=== PATIENT | female | born 1940 | race Caucasian/White ===

== ENCOUNTER 2018-03-10 17:06 | Inpatient (IN) ==
[2018-03-10] MEDS ORDERED: Naloxone 0.4 MG/ML INJ IVP PRN (20:39)
[2018-03-10] MEDS ORDERED: Acetaminophen 325 MG TABLET PO PRN (20:39)
[2018-03-10] MEDS ORDERED: 0.9 % Sodium Chloride 1,000 ML IVC SCH (20:45)
--- NOTE | 2018-03-10 21:02 | Internal Med History&Physical ---
Date of Encounter: 03/10/18 Time of Encounter: 20:00 Internal Medicine - H&P: HPI Chief complaint: syncope Admitted From: Hospital to Hospital Transfer Plans for Post Hospital Care: Home History of present illness: Ms. Randhawa is a 77 year old female who presents today in transfer from [facility] ER for concerns of syncope. She lives alone and suffers from dementia. However, she has a caregiver who stays with her most of the day every day. Today, her caregiver was helping her bathe and was getting her out of the shower when she became lightheaded and dizzy and sustained a syncopal event. Her caregiver/granddaughter was able to catch her and prevent a fall. She placed her on the ground and called the squad. She was brought to the ER where she was seen and evaluated. She was noted to be borderline hypotensive and bradycardic with heart rate in the 50s. Workup was essentially negative other than her bradycardia. She later went to go to the bathroom at the ER and [facility] and sustained a syncopal event. At that time, her blood pressure was in the 90s systolic. At that point, decision was made to transfer to [place] for further workup and care. Upon my assessment of the patient, patient's daughter and granddaughter are present and provided above history. Patient is pleasantly confused and does not offer much history. This is the patient's third episode of syncope/near syncope this week. She has had prior episodes in the past. She has also had a history of bradycardia in the past but has not had any intervention. To the family's knowledge, she has never had any heart problems or heart rhythm problems other than the bradycardia. She is on Lasix and has chronic kidney disease stage III. She does appear somewhat dehydrated, and I suspect that volume depletion may have contributed to her syncopal event. However, the bradycardia bothers me and may play a big role in her syncope. I discussed with the family their wishes and the patient's CODE STATUS. The power of estate planning attorney was not present, but the family contacted the power of estate planning attorney by phone. The two family members present and the power of estate planning attorney on the phone could not come to a decision on CODE STATUS at this time and the patient had not expressed prior wishes previously. Therefore, she will remain full code for now until family and POA can come to decision on the patient's behalf. Past Med Surg Social Fam HX - Past Medical History Attestation: Yes The following information was validated with the patient. Source: obtained from family, other (limited [facility] records) Medical history: dementia, GERD, renal disease (CKD 3) Psychiatric history: no psych history - Past Surgical History Surgical History: orthopedic, other (shoulder) - Social History Smoking Status: Never smoker Alcohol use: none Drug use: none Current living situation: Home Activity Level: Independent ambulation Recent Out of Country Travel Within the Last 8 Weeks: No Additional social history: caregiver daily at home - Family History Mother Living Status: Hx Family Cardiac Disorders: Yes (CHF) Father Living Status: Hx Family Cancer: Yes (liver) ROS unobtainable: due to mental status Review of systems: as per [place]; otherwise unobtainable due to dementia - Constitutional Vitals: Temp Pulse Resp BP Pulse Ox 98.3 F 69 18 108/58 98 03/10/18 20:04 03/10/18 20:04 03/10/18 20:04 03/10/18 20:04 03/10/18 20:04 General appearance: Present: A&O X 1, A&O X 3, pleasant, no acute distress Exam: appears dry - Head Head exam: Present: atraumatic, normal inspection - Eye Eye exam: Present: EOMI, PERRL. Absent: scleral icterus Pupils: Present: normal accommodation - ENT ENT exam: Present: mucous membranes dry, normal exam, normal oropharynx - Neck Neck exam general surgery: Present: full ROM, supple. Absent: tenderness, nuchal rigidity, thyromegaly - Respiratory Respiratory exam: Present: CTAB. Absent: chest wall tenderness, rales, rhonchi , wheezes - Cardiovascular Cardiovascular exam: Present: bradycardia, RRR, +S1, +S2, systolic murmur ( grade 1). Absent: diastolic murmur - GI/Abdominal GI/Abdominal exam: Present: normal bowel sounds, soft. Absent: hepatomegaly, splenomegaly, tenderness - Extremities Exam Extremities exam: Present: normal capillary refill, warm, radial pulses palpable and symmetrical. Absent: calf tenderness, joint swelling, pedal edema , tenderness - Back Exam Back exam: Absent: CVA tenderness (L), CVA tenderness (R) - Neurological Exam Neurological exam: Present: alert, CN II-XII intact, no focal deficits, strengths equal and symetr throughout. Absent: oriented X3 (pleasantly confused ) - Psychiatric Psychiatric exam: Present: normal affect, normal mood - Skin Skin exam: Present: dry, intact, warm Internal Med - H&P Results - Labs Labs: I reviewed her labs from [facility] and include the following: WBC 9.6 Hemoglobin 12.6 Hematocrit 39.2 Platelets 271 Sodium 139 Potassium 3.5 Chloride 102 Carbon dioxide 29 BUN 16 Glucose 143 Creatinine 1.45 Troponin less than 0.1 CT of the head reportedly negative but I do not see any documentation of that EKG -- personally reviewed: Sinus bradycardia with first-degree AV block and some subtle ST flattening and depression in leads V4 to V6 and lead 1 and aVL - Assessment and plan (1) Syncope Current Visit: Yes Status: Acute Assessment and plan: 1. Will trend troponins, EKG's, and monitor vitals closely. 2. Will monitor glucose for hypoglycemia. 3. Continue IVF and hold lasix. 4. Will order ECHO and Carotid Dopplers. 5. Obtain home med list and verify meds. List from [facility] reviewed and not officially updated. Qualifiers: Syncope type: unspecified Qualified Code(s): R55 - Syncope and collapse (2) Symptomatic bradycardia Current Visit: Yes Status: Acute Assessment and plan: 1. Hold any home medications which could affect rhythm and AV kristin suppression. 2. Monitor on telemetry. 3. Consult cardiology given history of bradycardia and recurrent syncope. (3) Dementia Current Visit: Yes Status: Chronic Assessment and plan: 1. Resume home meds as appropriate once med list obtained and verified. 2. Chronic care givers at home. Qualifiers: Dementia type: unspecified type Dementia behavioral disturbance: without behavioral disturbance Qualified Code(s): F03.90 - Unspecified dementia without behavioral disturbance (4) DVT prophylaxis Current Visit: Yes Status: Acute Assessment and plan: 1. Heparin SQ.
[2018-03-11 03:03] LABS: Bilirubin,Urine Negative (Negative); Blood,Urine Moderate (Negative); Clarity,Urine Cloudy (Clear); Color,Urine Yellow (Yellow); Glucose,Urine (UA) Normal (Normal); Ketones,Urine Negative (Negative); Leukocyte Esterase,Urine Small (Negative); Nitrite,Urine Negative (Negative); PH,Urine 6.5 pH Units (5.0-8.0); Protein,Urine Negative (Neg-Trace); Specific Gravity,Urine < 1.005 (1.010-1.025); Urobilinogen,Urine Normal (Normal)
[2018-03-11 03:06] LABS: Bacteria,Urine Many per hpf (None-Few); Hyaline Casts,Urine None Seen per lpf (None-Few); Squamous Epithelial Cell,Urine Many per lpf (None-Few)
[2018-03-11 03:45] LABS: Basophils % 0.5 %; Eosinophils # 0.3 K/mcL (0.0-0.6); Eosinophils % 3.8 %; Hemoglobin 10.8 g/dL (11.5-15.4); Immature Granulocytes % 0.1 % (0-4); Lymphocytes # 3.4 K/mcL (0.6-4.6); Lymphocytes % 44.3 %; Mean Corpuscular HGB Conc 32.7 g/dL (31.6-35.5); Mean Corpuscular Hemoglobin 31.6 pg (28.0-33.3); Mean Corpuscular Volume 96.5 fL (83.0-100.0); Mean Platelet Volume 9.8 fL (9.4-12.4); Monocytes # 0.9 K/mcL (0.0-1.3); Monocytes % 11.1 %; Neutrophils # 3.1 K/mcL (1.6-8.9); Platelet Count 202 K/mcL (140-400); Red Blood Count 3.42 M/mcL (3.82-4.97); Segmented Neutrophils % 40.2 %
[2018-03-11 03:53] LABS: INR 1.1; Prothrombin Time 12.6 Seconds (9.4-12.1)
[2018-03-11 03:55] LABS: Activated Partial Thrombo Time 26.4 Seconds (26.0-36.0)
[2018-03-11] MEDS ORDERED: 0.9 % Sodium Chloride 1,000 ML IVC SCH (04:00)
[2018-03-11 04:05] LABS: Albumin/Globulin Ratio 1.2 (1.1-2.2); Bilirubin,Total 0.3 mg/dL (0.3-1.0); Calcium 8.7 mg/dL (8.6-10.3); Chol/HDL Ratio 2.8 (0-4.9); Globulin 2.6 g/dL (2.4-3.5); Magnesium 2.1 mg/dL (1.6-2.6); Potassium 3.5 mEq/L (3.5-5.1); Total Protein 5.6 g/dL (6.4-8.9)
[2018-03-11] MEDS: *HR* Heparin 5,000 UNIT/ML VIAL SQ SCH ×2 (06:18→18:03)
--- NOTE | 2018-03-11 10:31 | Internal Med Progress Note ---
Hospitalist Progress Note - Encounter Date of Encounter: 03/11/18 Time of Encounter: 10:27 - Subjective Interval History: 77-year-old female past medical history of dementia brought into the hospital following a syncopal episode, possible secondary to bradycardia vs vol depletion. Patient evaluated at bedside, reports doing well but feels sleepy because she could not sleep last night. denies light headednes, dizziness, nausea or vomiting. No chest pain or SOB reported. - Exam Vitals: Temp Pulse Resp BP Pulse Ox 97.9 F 55 17 141/76 96 03/11/18 07:28 03/11/18 07:28 03/11/18 07:28 03/11/18 07:28 03/11/18 07:28 Exam: General: Alert and oriented x2. No acute distress. Cardiovascular: Bradycardic, Normal S1 & S2, no rubs, murmurs or gallops. Lungs: Clear to auscultation bilaterally, no wheezes or crackles. Abdomen: Soft, non-tender, no rigidity. Extremities: no edema or tenderness, no joint swelling or clubbing. strength 5/ 5 in the upper and lower extremities. Neurological: CN II-XII. Rest of the physical exam is non contributory - Assessment and Plan (1) Syncope Current Visit: Yes Status: Acute Assessment and Plan: Possible secondary to Bradycardia vs vol depletion. No focal neurological findings. Plan Continue IV hydration On d5NS@75mls/hr Cardiology has been consulted. carotid dupplex and echo cardiogram ordered, report to follow. (2) Dementia Current Visit: Yes Status: Chronic Assessment and Plan: donepezil on hold due to Bradycardia (3) Bradycardia Current Visit: Yes Status: Acute Assessment and Plan: Possible contributing to her syncopal episode. Plan Telemetry monitoring Cardiology has been consulted will follow their recommendations f/u THS 12 lead ekg. (4) Acute kidney injury Current Visit: Yes Status: Acute Assessment and Plan: Possible due to dehydration. Continue gentle hydration with D5NS@75mls/hr (5) DVT prophylaxis Current Visit: Yes Status: Acute Assessment and Plan: On heparin 5000 units subq BID - Summary of Assessment and Plan Summary of Assessment and Plan: Patient to remain in the hospital due to bradycardia, dehydration and acute kidney injury - Time Spent with Patient Total time spent is greater than 50% in coordination of care (as documented) at patient's floor/unit and/or counseling patient: 25 - 35 minutes Plan of Care Discussed with: patient (the nurse.) Internal Medicine: Result - Labs CBC & Chem 7: 03/11/18 03:33 03/11/18 03:33 Labs: Short CBC 03/11/18 Range/Units 03:33 WBC 7.6 (4.3-11.1) K/mcL Hgb 10.8 L (11.5-15.4) g/dL Hct 33.0 L (35.3-44.9) % Plt Count 202 (140-400) K/mcL Neutrophils # 3.1 (1.6-8.9) K/mcL BMP 03/11/18 03:33 Sodium 139 Potassium 3.5 Chloride 110 H Carbon Dioxide 24 BUN 23 Creatinine 1.27 H Glucose 111 H Calcium 8.7 Cardiac Enzymes 03/10/18 03/11/18 03/11/18 Range/Units 21:21 03:33 09:07 Troponin I < 0.03 < 0.03 < 0.03 (< 0.04) ng/mL Liver Function 03/11/18 Range/Units 03:33 Total Bilirubin 0.3 (0.3-1.0) mg/dL AST 17 (13-39) Units/L ALT 7 (7-52) Units/L Alkaline Phosphatase 86 (34-104) Units/L Albumin 3.0 L (3.5-5.7) g/dL Urine 03/11/18 Range/Units 02:51 Urine Color Yellow (Yellow) Urine Clarity Cloudy A (Clear) Urine pH 6.5 (5.0-8.0) pH Units Ur Specific [place] < 1.005 L (1.010-1.025) Urine Protein Negative (Neg-Trace) mg/dL Urine Glucose (UA) Normal (Normal) mg/dL - ABG Interpretation ABG results: PT/INR, D-dimer PT 12.6 Seconds (9.4-12.1) H 03/11/18 03:33 Consult Discharge Plan - Plan Referrals: Yessenia Marie MD [Primary Care Provider] - Abhinav Mccarthy DO [Family Provider] - (1) Syncope Qualifiers: Syncope type: vasovagal syncope Qualified Code(s): R55 - Syncope and collapse (2) Dementia Qualifiers: Dementia type: unspecified type Dementia behavioral disturbance: without behavioral disturbance Qualified Code(s): F03.90 - Unspecified dementia without behavioral disturbance
--- NOTE | 2018-03-11 10:46 | Cardiology Consult Note ---
Date of Encounter: 03/11/18 Time of Encounter: 09:00 Assessment and Plan (1) Syncope Current Visit: Yes Status: Acute Patient presented as a transfer from [facility] due to syncopal episode yesterday that occurred while on the toilet. Suspect vasovagal in etiology. Concern for hypotension/bradycardia. Minimum HR noted in [facility] ED 52--SB. Telemetry review: avg HR=60; no significant pause, minimum HR 43 during nocturnal hours. HR mid 60's upon exam, asymptomatic. Hx of dementia, difficult to obtain history. Home medications include prn lasix--unclear last dose, ? component of dehydration. Check TTE to evaluate structure and function. Continue to monitor telemetry. No indication for PPM at this time. Avoid AV kristin blocking agents. Qualifiers: Syncope type: vasovagal syncope Qualified Code(s): R55 - Syncope and collapse Discussion w patient/family: The assessment and plan as outlined above was discussed with the patient and/or family members who expressed understanding and agreement. All questions were answered. Thank you for involving us in the care of your patient. Please call with any questions. The patient will be discussed and reviewed with Dr. Bowers; changes to be made accordingly. History of Present Illness Consult date: 03/11/18 Requesting physician: Pepe Montero Consult reason: Syncope Chief complaint: Dizziness History of present illness: Ms. Randhawa is a 77 year old female with PMHx significant of dementia, GERD, and COPD who presented to the ED as a transfer from [facility] due to syncope. Per ED reports (no family at bedside) patient had syncopal episode on the toilet while attempting to defecate. HPI difficult to obtain from patient given hx of dementia. Upon review of [facility] documentation, patient also has hx of frequent falls and had been several times over the past few weeks due to similar symptoms. ECG upon arrival to [facility] demonstrates SB 52 BPM. BP 90/58. Hypoxia also reported. No prior CV testing available at [facility]. Past Med Surg Social Fam HX - Past Medical History Attestation: Yes The following information was validated with the patient. Source: old records reviewed, nursing notes reviewed, other ([facility] ED notes) Medical history: dementia, GERD, renal disease (CKD 3) Additional medical history: CKD stage 3 Psychiatric history: no psych history - Past Surgical History Surgical History: orthopedic, other (shoulder) Additional surgical history: bilat shoulder replacements, carpal tunnel - Social History Smoking Status: Never smoker Smokeless Tobacco Status: No Alcohol use: none Drug use: none - Family History Father Living Status: Hx Family Cancer: Yes (liver) Mother Living Status: Hx Family Cardiac Disorders: Yes (CHF) Medications and Allergies Acetaminophen [Tylenol] 500 mg PO Q6HR PRN 03/11/18 [History] Alendronate Sodium [Fosamax] 70 mg PO TH 03/11/18 [History] Atorvastatin [Lipitor] 10 mg PO HS 03/11/18 [History] Bisacodyl [Dulcolax] 5 mg PO DAILY PRN 03/11/18 [History] Cetirizine HCl [Zyrtec] 10 mg PO DAILY 03/11/18 [History] Dextran 70/Hypromellose [Artificial Tears] 1 - 2 drop OP Q4H PRN 03/11/18 [ History] Docusate [Colace] 100 mg PO DAILY PRN 03/11/18 [History] Donepezil HCl [Aricept] 10 mg PO DAILY 03/11/18 [History] Fluticasone Propionate Nasal [Flonase] 50 mcg NS DAILY 03/11/18 [History] Furosemide [Lasix] 20 mg PO DAILY PRN 03/11/18 [History] Meclizine HCl [Verticalm] 25 mg PO DAILY PRN 03/11/18 [History] Memantine [Namenda] 10 mg PO BID 03/11/18 [History] Multivit-Min/Iron/Folic/Lutein [Centrum Silver Women Tablet] 1 tab PO DAILY [History] Omeprazole [PriLOSEC] 20 mg PO DAILY 03/11/18 [History] Venlafaxine [Effexor] 75 mg PO DAILY 03/11/18 [History] 3 Allergy/AdvReac Type Severity Reaction Status Date / Time codeine Allergy Hives Verified 03/10/18 21:07 tramadol Allergy Hives Verified 03/10/18 21:07 ROS unobtainable: due to mental status All Systems Review: The remainder of the systems were reviewed and are negative - Cardiovascular Cardiovascular: as per HPI Physical Examination Vital Signs, Last 4 Hours Temp Pulse Resp BP Pulse Ox 03/11/18 07:28 97.9 F 55 17 141/76 96 General: Conversant, No Apparent Distress, Other (pale, frail elderly WF) Cardiac: Reg Rate and Rhythm, Normal S1 and S2 Lungs: Normal Breath Sounds Neuro: Alert and responsive Abdomen: Soft Skin: No rashes noted on visualized skin Musculoskeletal: No Chest Wall Tenderness Extremities: No Edema, Normal Pulses Results 03/11/18 03:33 03/11/18 03:33 Lab Results 03/10/18 03/11/18 03/11/18 21:21 03:33 03:33 WBC 7.6 Hgb 10.8 L Hct 33.0 L Plt Count 202 INR APTT Sodium Potassium Chloride Carbon Dioxide BUN Creatinine Glucose Calcium Magnesium Total Bilirubin AST ALT Alkaline Phosphatase Troponin I < 0.03 < 0.03 03/11/18 03/11/18 03/11/18 03:33 03:33 09:07 WBC Hgb Hct Plt Count INR 1.1 APTT 26.4 Sodium 139 Potassium 3.5 Chloride 110 H Carbon Dioxide 24 BUN 23 Creatinine 1.27 H Glucose 111 H Calcium 8.7 Magnesium 2.1 Total Bilirubin 0.3 AST 17 ALT 7 Alkaline Phosphatase 86 Troponin I < 0.03 Active Medications Acetaminophen (Tylenol) 650 mg PO Q6H PRN PRN Reason: Mild Pain/Fever Stop: 09/09/18 20:40 Atorvastatin Calcium (Lipitor) 10 mg PO HS [facility] Stop: 09/10/18 21:01 Heparin Sodium (Porcine) (Heparin) 5,000 unit SQ Q12HCO [facility] Stop: 09/10/18 06:01 Last Admin: 03/11/18 06:18 Dose: 5,000 unit Dextrose/Sodium Chloride (D5% And 0.9% Nacl 1000 Ml) 1,000 mls @ 75 mls/hr IVC .[id number] [facility] Stop: 09/10/18 10:31 Naloxone HCl (Narcan) 0.4 mg IVP Q2MIN PRN PRN Reason: SEE COMMENTS Stop: 09/09/18 20:40 Senna/Docusate Sodium (Senna Plus) 1 each PO BID [facility] PRN Reason: Protocol Stop: 09/10/18 21:01 Venlafaxine HCl (Effexor Xr) 75 mg PO DAILY [facility] Stop: 09/11/18 09:01 - Imaging and Cardiology Echo: pending - EKG Interpretation EKG results cardiology: personally reviewed Consult Discharge Plan - Plan Referrals: Yessenia Marie MD [Primary Care Provider] - Abhinav Mccarthy DO [Family Provider] -
[2018-03-11] MEDS: D5% in 0.9% NACL 1,000 ML IVC SCH (11:42)
--- NOTE | 2018-03-11 17:15 | Electrocardiograph Report ---
[place] [id number] Test Date: 2018-03-11 Pat Name: Yi Randhawa Department: 111 Room: 2NE18 Gender: F Show Host/Hostess: : 1940 Requested By: Pepe Montero Order Number: [id number] Reading MD: Karon Vizcarra Measurements Intervals [place] Rate: 58 P: RI: 0 QRS: -19 QRSD: 81 T: 120 QT: 380 QTc: 376 Interpretive Statements ARTIFACT LIMITS INTERPRETATION CONSIDER NORMAL SINUS RHYTHM Electronically Signed On 03-11-2018 17:13:39 EDT by Karon Vizcarra
[2018-03-11] MEDS: Sennosides/Docusate Sodium TABLET PO SCH (19:54)
[2018-03-12] MEDS: *HR* Heparin 5,000 UNIT/ML VIAL SQ SCH ×2 (04:10→17:23)
[2018-03-12] MEDS: Venlafaxine XR (24 HR) 75 MG CAP.ER.24H PO SCH (08:58)
[2018-03-12] MEDS: Sennosides/Docusate Sodium TABLET PO SCH ×2 (08:58→20:54)
[2018-03-12] MEDS: D5% in 0.9% NACL 1,000 ML IVC SCH ×2 (12:50)
--- NOTE | 2018-03-12 16:14 | Event Note ---
Date of Encounter: 03/12/18 Time of Encounter: 16:15 - Cardiology Event Note ECHO: Impressions: Basal sigmoid septum. LVEF 60-65%. Normal right ventricular structure and function. Mildly calcified aortic valve leaflets. No aortic stenosis. Trace tricuspid regurgitation. No pulmonary hypertension. Left Ventricular Wall Motion: Rest Echo Findings All wall segments showed normal motion. Cardiology signing off.
--- NOTE | 2018-03-12 20:58 | Internal Med Progress Note ---
Hospitalist Progress Note - Encounter Date of Encounter: 03/12/18 Time of Encounter: 19:00 - Subjective Interval History: SUBJECTIVE: The patient feels good. Denies chest pain, dyspnea, coughing and wheezing. Denies abdominal pain, nausea and vomiting. She has normal urination. The patient has not started any ambulation yet. Physical therapy has been consulted. OBJECTIVE: Skin: Free of rash and discoloration. ENMT: Oral/pharyngeal mucosa is normal in appearance. Eyes: Sclera is white. There is no discharge from eyes. Respiratory: Normal breath sounds; no crackles or wheezes. CV: Heart is regular; no gallop or murmur. GI: Abdomen is soft and not tender. There is no palpable mass or visceromegaly. Neuro: There is no focal deficits. ASSESSMENT AND PLAN: Syncope. Likely vasovagal. It happened, when she had a bowel movement. Echocardiogram and carotid duplex are normal. Cardiac telemetry is normal. It was started ambulating her today. We will be watching her for postural hypotension. See cardiology notes. GERD. Under control. We will restart her Prilosec. Hypertensive renal disease with CKD 3. The patient currently does not take any antihypertensives. She was taking low-dose her Lasix at home. Dementia. We will continue supportive treatments. DISPOSITION: Tentative discharge is tomorrow. - Exam Vitals: Temp Pulse Resp BP Pulse Ox 98.2 F 68 20 122/87 95 03/12/18 16:27 03/12/18 16:27 03/12/18 16:27 03/12/18 16:27 03/12/18 16:27 Exam: xx - Assessment and Plan (1) Syncope Current Visit: Yes Status: Acute (2) GERD (gastroesophageal reflux disease) Current Visit: Yes Status: Acute (3) Hypertensive renal disease with renal failure Current Visit: Yes Status: Chronic (4) Dementia Current Visit: Yes Status: Chronic - Time Spent with Patient Total time spent is greater than 50% in coordination of care (as documented) at patient's floor/unit and/or counseling patient: 25 - 35 minutes Plan of Care Discussed with: nurse Internal Medicine: Result - Labs CBC & Chem 7: 03/11/18 03:33 03/11/18 03:33 - ABG Interpretation ABG results: PT/INR, D-dimer PT 12.6 Seconds (9.4-12.1) H 03/11/18 03:33 - Impressions Impressions Echocardiogram 03/10/18 20:39 Impressions: Basal sigmoid septum. LVEF 60-65%. Normal right ventricular structure and function. Mildly calcified aortic valve leaflets. No aortic stenosis. Trace tricuspid regurgitation. No pulmonary hypertension. Left Ventricular Wall Motion: Rest Echo Findings All wall segments showed normal motion. Findings: Study Quality * Technically adequate exam. ECG Findings * Normal sinus rhythm. Left Ventricle * Basal sigmoid septum. * Normal left ventricular diastolic function. * LVEF 60-65%. Right Ventricle * Normal right ventricular structure and function. Left Atrium * Normal left atrial size. Right Atrium * Normal right atrial size. Interatrial Septum * No evidence of PFO by color Doppler. Aortic Valve * Trileaflet aortic valve. * Mildly calcified aortic valve leaflets. * No aortic stenosis. * No aortic regurgitation. Mitral Valve * Normal mitral valve structure and function. * No mitral regurgitation. * No mitral stenosis. Tricuspid Valve * Trace tricuspid regurgitation. * Estimated RVSP is 30 mmHg. * Estimated RA pressure is 5 mmHg. * No pulmonary hypertension. Pulmonic Valve * Normal pulmonic valve structure and function. * No pulmonic regurgitation. Aorta * Normally sized aortic root. Pericardium * The pericardium appears normal. IVC * Normal IVC dimensions and inspiratory collapse. Pulmonary Artery * Normal visualized portions of the main pulmonary artery. Consult Discharge Plan - Plan Referrals: Yessenia Marie MD [Primary Care Provider] - Abhinav Mccarthy DO [Family Provider] - (1) Syncope Qualifiers: Syncope type: vasovagal syncope Qualified Code(s): R55 - Syncope and collapse (2) GERD (gastroesophageal reflux disease) Qualifiers: Esophagitis presence: esophagitis presence not specified Qualified Code(s): K21.9 - Gastro-esophageal reflux disease without esophagitis (4) Dementia Qualifiers: Dementia type: unspecified type Dementia behavioral disturbance: without behavioral disturbance Qualified Code(s): F03.90 - Unspecified dementia without behavioral disturbance
[2018-03-13] MEDS: D5% in 0.9% NACL 1,000 ML IVC SCH ×2 (02:11→15:58)
[2018-03-13] MEDS: *HR* Heparin 5,000 UNIT/ML VIAL SQ SCH ×2 (05:54→18:36)
[2018-03-13] MEDS: Sennosides/Docusate Sodium TABLET PO SCH ×2 (10:06→21:41)
[2018-03-13] MEDS: Venlafaxine XR (24 HR) 75 MG CAP.ER.24H PO SCH (10:07)
--- NOTE | 2018-03-13 21:00 | Internal Med Progress Note ---
Hospitalist Progress Note - Encounter Date of Encounter: 03/13/18 Time of Encounter: 19:00 - Subjective Interval History: SUBJECTIVE: The patient can walk with some assistance. She has difficulty to get out of her bed. Complains of weakness. Otherwise, she feels good. Denies chest pain , dyspnea, coughing and wheezing. Denies abdominal pain, nausea and vomiting. She has normal urination. OBJECTIVE: Skin: Free of rash and discoloration. ENMT: Oral/pharyngeal mucosa is normal in appearance. Eyes: Sclera is white. There is no discharge from eyes. Respiratory: Normal breath sounds; no crackles or wheezes. CV: Heart is regular; no gallop or murmur. GI: Abdomen is soft and not tender. There is no palpable mass or visceromegaly. Neuro: There is no focal deficits. ASSESSMENT AND PLAN: Syncope. Likely vasovagal. It happened, when she had a bowel movement. Echocardiogram and carotid duplex are normal. Cardiac telemetry is normal. We started physical therapy for ambulation yesterday. We will be watching her for postural hypotension. Cardiology signed off. GERD. Under control. We will restart her Prilosec. Hypertensive renal disease with CKD 3. The patient currently does not take any antihypertensives. She was taking low-dose her Lasix at home. Deconditioning/debility. She will benefit from physical therapy in ECF. Dementia. We will continue supportive treatments. DISPOSITION: We are hoping to get ECF soon. - Exam Vitals: Temp Pulse Resp BP Pulse Ox 98.8 F 62 20 116/66 95 03/13/18 15:21 03/13/18 15:21 03/13/18 15:21 03/13/18 15:21 03/13/18 15:21 Exam: xx - Assessment and Plan (1) Syncope Current Visit: Yes Status: Acute (2) GERD (gastroesophageal reflux disease) Current Visit: Yes Status: Acute (3) Hypertensive renal disease with renal failure Current Visit: Yes Status: Chronic (4) Debility Current Visit: Yes Status: Acute (5) Dementia Current Visit: Yes Status: Chronic - Time Spent with Patient Total time spent is greater than 50% in coordination of care (as documented) at patient's floor/unit and/or counseling patient: 25 - 35 minutes Plan of Care Discussed with: patient Internal Medicine: Result - Labs CBC & Chem 7: 03/11/18 03:33 03/11/18 03:33 - ABG Interpretation ABG results: PT/INR, D-dimer PT 12.6 Seconds (9.4-12.1) H 03/11/18 03:33 Consult Discharge Plan - Plan Referrals: Yessenia Marie MD [Primary Care Provider] - Abhinav Mccarthy DO [Family Provider] - (1) Syncope Qualifiers: Syncope type: vasovagal syncope Qualified Code(s): R55 - Syncope and collapse (2) GERD (gastroesophageal reflux disease) Qualifiers: Esophagitis presence: esophagitis presence not specified Qualified Code(s): K21.9 - Gastro-esophageal reflux disease without esophagitis (5) Dementia Qualifiers: Dementia type: unspecified type Dementia behavioral disturbance: without behavioral disturbance Qualified Code(s): F03.90 - Unspecified dementia without behavioral disturbance
[2018-03-14 04:58] LABS: Basophils % 0.5 %; Eosinophils # 0.4 K/mcL (0.0-0.6); Eosinophils % 5.3 %; Hematocrit 29.4 % (35.3-44.9); Hemoglobin 9.3 g/dL (11.5-15.4); Immature Granulocytes % 0.3 % (0-4); Lymphocytes # 2.9 K/mcL (0.6-4.6); Mean Corpuscular HGB Conc 31.6 g/dL (31.6-35.5); Mean Corpuscular Hemoglobin 30.7 pg (28.0-33.3); Mean Platelet Volume 10.3 fL (9.4-12.4); Monocytes # 0.8 K/mcL (0.0-1.3); Monocytes % 9.9 %; Neutrophils # 3.6 K/mcL (1.6-8.9); Platelet Count 190 K/mcL (140-400); Red Blood Count 3.03 M/mcL (3.82-4.97)
[2018-03-14] MEDS: *HR* Heparin 5,000 UNIT/ML VIAL SQ SCH (05:15)
[2018-03-14] MEDS: D5% in 0.9% NACL 1,000 ML IVC SCH (05:16)
[2018-03-14 05:17] LABS: BUN/Creatinine Ratio 22 (6-26); Blood Urea Nitrogen 19 mg/dL (8-23); Calcium 8.7 mg/dL (8.6-10.3); Carbon Dioxide 24 mEq/L (23-29); Chloride 108 mEq/L (98-107); Glucose 116 mg/dL (70-105); Osmolality,Calculated 285 (280-300); Potassium 3.8 mEq/L (3.5-5.1); Sodium 136 mEq/L (136-145); eGFR For Non-African Americans > 60 (> 60)
[2018-03-14 07:56] VITALS: BP 136/67
[2018-03-14] MEDS: Sennosides/Docusate Sodium TABLET PO SCH (08:44)
[2018-03-14] MEDS: Venlafaxine XR (24 HR) 75 MG CAP.ER.24H PO SCH (08:44)
--- NOTE | 2018-03-14 15:05 | Discharge Summary ---
Date of Encounter: 03/14/18 Time of Encounter: 15:04 - Discharge Diagnosis (1) Syncope Priority: Primary Status: Acute Qualifiers: Syncope type: vasovagal syncope Qualified Code(s): R55 - Syncope and collapse (2) Hypertensive renal disease with renal failure Priority: Secondary Status: Chronic (3) GERD (gastroesophageal reflux disease) Priority: Secondary Status: Acute Qualifiers: Esophagitis presence: esophagitis presence not specified Qualified Code(s) : K21.9 - Gastro-esophageal reflux disease without esophagitis (4) Debility Priority: Secondary Status: Chronic (5) Dementia Priority: Secondary Status: Chronic Qualifiers: Dementia type: unspecified type Dementia behavioral disturbance: without behavioral disturbance Qualified Code(s): F03.90 - Unspecified dementia without behavioral disturbance Hospital course: HOSPITAL COURSE: The patient was brought to our hospital shortly after she experienced a syncopal episode. Initially, she became dizzy/lightheaded shortly after having a bowel movements. She became borderline hypotensive with heart rate at 50s. Then, when she was evaluated in the emergency department she had a syncopal episode; had systolic blood pressure at low 90s. They did not notice any significant cardiac arrhythmia at that time. The patient was admitted to telemetry floor. Her cardiac monitoring did not reveal any particular abnormalities. Her troponin was checked on a few occasions - was normal. EKG showed normal findings. Cardiology was consulted. Echocardiogram showed left ventricular ejection fraction of 6065%. We started ambulating this patient yesterday, with help from physical therapy. She has difficulty to get out of bed; he is able to ambulate with assistance. This patient was taking Lasix at home. We decided not to give her this medication. Her blood pressure/heart rate is seem to be under control. CONDITION AT DISCHARGE: She feels good. She is not voicing any particular symptoms. Denies chest pain. Denies difficulty breathing, coughing and wheezing. She has normal bowel movement/urination. Skin: Free of rash and discoloration. Respiratory: Normal breath sounds with no crackles and wheezes bilaterally. CV: Heart is regular with no gallop or murmur. GI: Abdomen is flat and soft with no palpable mass or visceromegaly. Neuro exam: There is no focal deficits. Normal speech, swallowing and gait. SEE DISCHARGE ORDERS/MEDICATIONS.. The patient goes to a [facility] facility. I talked to the physician covering that unit. - Time Spent with Patient Total time spent providing and/or coordinating discharge services: Greater than 30 minutes (45 minutes) - Discharge Medications Home Medications: Acetaminophen [Tylenol] 500 mg PO Q6HR PRN 03/11/18 [History] Alendronate Sodium [Fosamax] 70 mg PO TH 03/11/18 [History] Atorvastatin [Lipitor] 10 mg PO HS 03/11/18 [History] Bisacodyl [Dulcolax] 5 mg PO DAILY PRN 03/11/18 [History] Cetirizine HCl [Zyrtec] 10 mg PO DAILY 03/11/18 [History] Dextran 70/Hypromellose [Artificial Tears] 1 - 2 drop OP Q4H PRN 03/11/18 [ History] Donepezil HCl [Aricept] 10 mg PO DAILY 03/11/18 [History] Fluticasone Propionate Nasal [Flonase] 50 mcg NS DAILY 03/11/18 [History] Meclizine HCl [Verticalm] 25 mg PO DAILY PRN 03/11/18 [History] Memantine [Namenda] 10 mg PO BID 03/11/18 [History] Multivit-Min/Iron/Folic/Lutein [Centrum Silver Women Tablet] 1 tab PO DAILY [History] Omeprazole [PriLOSEC] 20 mg PO DAILY 03/11/18 [History] Venlafaxine [Effexor] 75 mg PO DAILY 03/11/18 [History] Docusate [Colace] 100 mg PO BID #60 03/14/18 [Rx] Allergies/Adverse Reactions: 3 Allergy/AdvReac Type Severity Reaction Status Date / Time codeine Allergy Hives Verified 03/10/18 21:07 tramadol Allergy Hives Verified 03/10/18 21:07 Date of admission: 03/11/18 15:33 Primary care physician: Yessenia Marie MD Consults: 03/10/18 20:43 Consult to Physician [CONS] Routine Consulting Provider: Doyle Chackoay Elia Reason for Consult: syncope; symptomatic bradycardia Call Completed: No 03/10/18 21:05 Consult to Nutrition [CONS] Routine Comment: Consulting Provider: NUTRITION Reason for Dietary Consult: MST Score Consult to Hand Riveter [CONS] Routine Reason for SW Consult: discharge planning 03/11/18 10:38 Consult to Cardiology [CONS] Routine Comment: Consulting Provider: Cardiology Tessa Reason for Consult: symptomatic bradycardia. syncope Call Completed: No 03/11/18 14:35 Consult to Occupational Therapy [CONS] Routine Comment: Evaluate, develop and implement POC Reason for Consult: For rehab placement Does patient have active BEDREST order?: No Is patient medically & hemodynamically stable?: Yes Consult to Physical Therapy [CONS] Routine Comment: Evaluate, develop and implement POC Reason for Consult: For rehab placement at discharge Does patient have active BEDREST order?: No Is patient medically & hemodynamically stable?: No Discharging clinician: Duncan Wakefield Anticipated date of discharge: 03/14/18 - Constitutional Vitals: Temp Pulse Resp BP Pulse Ox 97.7 F 61 18 136/67 98 03/14/18 07:53 03/14/18 07:53 03/14/18 07:53 03/14/18 07:53 03/14/18 07:53 General appearance: Present: A&O X 2, pleasant, no acute distress Exam: xx - Patient Status Disposition: Transfer SNF Condition: Fair Functional capacity at discharge: independent ambulation (needs assistance) - Discharge Instructions Follow Up With: Yessenia Marie MD [Primary Care Provider] - Abhinav Mccarthy DO [Family Provider] - - Diet and Activity Activity: increase activity as tolerated Diet: regular diet - VTE Deep Vein Thrombosis/Pulmonary Embolism Present on Admission: No
--- NOTE | 2018-03-14 15:48 | Physician Discharge Referral ---
ExtendedCare Referral Info Transfer To: [facility] Provider in Charge: MD Say Provider in Charge after Transfer: Other (an ECF physician) Institutional Level of Care: Skilled - Diagnosis (1) Syncope Priority: Primary Status: Acute (2) Hypertensive renal disease with renal failure Priority: Secondary Status: Chronic (3) GERD (gastroesophageal reflux disease) Priority: Secondary Status: Acute (4) Debility Priority: Secondary Status: Chronic (5) Dementia Priority: Secondary Status: Chronic Prognosis: Fair - Transfer Medications Home Medications: Acetaminophen [Tylenol] 500 mg PO Q6HR PRN 03/11/18 [History] Alendronate Sodium [Fosamax] 70 mg PO TH 03/11/18 [History] Atorvastatin [Lipitor] 10 mg PO HS 03/11/18 [History] Bisacodyl [Dulcolax] 5 mg PO DAILY PRN 03/11/18 [History] Cetirizine HCl [Zyrtec] 10 mg PO DAILY 03/11/18 [History] Dextran 70/Hypromellose [Artificial Tears] 1 - 2 drop OP Q4H PRN 03/11/18 [ History] Donepezil HCl [Aricept] 10 mg PO DAILY 03/11/18 [History] Fluticasone Propionate Nasal [Flonase] 50 mcg NS DAILY 03/11/18 [History] Meclizine HCl [Verticalm] 25 mg PO DAILY PRN 03/11/18 [History] Memantine [Namenda] 10 mg PO BID 03/11/18 [History] Multivit-Min/Iron/Folic/Lutein [Centrum Silver Women Tablet] 1 tab PO DAILY [History] Omeprazole [PriLOSEC] 20 mg PO DAILY 03/11/18 [History] Venlafaxine [Effexor] 75 mg PO DAILY 03/11/18 [History] Docusate [Colace] 100 mg PO BID #60 03/14/18 [Rx] Allergies/Adverse Reactions: 3 Allergy/AdvReac Type Severity Reaction Status Date / Time codeine Allergy Hives Verified 03/10/18 21:07 tramadol Allergy Hives Verified 03/10/18 21:07 - Respiratory Orders None Smoking Cessation: Smoking cessation has been advised. For more information, call the [place] Tobacco Quit Line at 8-610-MKHX-NOW. - Mobility Orders Ambulate (with assistance..) - Rehabiliation Orders Rehab Orders: Evaluation for Physical Therapy, Evaluation for Occupational Therapy - Diet Orders Regular CERTIFICATION: I certify that the transfer of the above named patient to an Extended Care Facility is necessary for the continuing treatment of the diagnosis listed. The above information is true and accurate reflection of patient's current condition. Confidential - Redisclosure prohibited without a patient's written consent.
== END 2018-03-14 17:27 | DRG 312 ==
LOC: 2NENU → SUATTDRO 03-11 15:33
PROVIDERS: ADMIT Internal Medicine; ATTEND Internal Medicine